=== PATIENT | male | born 1985 | race Caucasian/White ===

== ENCOUNTER 2021-06-26 10:16 | Emergency (ER) | payer BC, SELFPAY ==
--- NOTE | 2021-06-26 10:27 | ED.ANXIETY ---
HPI - Anxiety General Chief Complaint: Anxiety Stated Complaint: Anxiety/Chest Tightness Time Seen by Provider: 06/26/21 10:27 Source: patient and RN notes reviewed History of Present Illness HPI narrative: Patient is a 35-year-old male who presents the urgent care with complaints of anxiety. Reports of increased anxiety over the last 2 weeks to 1 month. 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 Patient denies of chest pain. States that symptoms are nearly fully resolved at this time. States that he notices an increase in symptoms at night. Patient states that he had a prescription for Xanax and it took years for him to finish it. Patient states he is not on any daily medications for anxiety or depression. Denies of any recent changes in life causing increase stress or anxiety. Denies of any shortness of breath. No other acute complaints. No acute distress noted. Patient aware of the plan of care. Some parts of this dictation were generated by voice recognition software and may contain typographical and/or grammatical inaccuracies. Related Data Allergies Allergy/AdvReac Type Severity Reaction Status Date / Time No Known Allergies Allergy Verified 06/26/21 10:43 Review of Systems Review of Systems: CONSTITUTIONAL: Denies fever, chills, or sweats. EYES: Denies visual changes, redness, or discharge. ENT: Denies rhinorrhea, congestion, sore throat, or otalgia. CARDIOVASCULAR: Denies chest pain, palpitations, or edema. RESPIRATORY: Denies cough or dyspnea. GASTROINTESTINAL: Denies abdominal pain, nausea, vomiting, or diarrhea. GENITOURINARY: Denies dysuria or hematuria. SKIN: Denies rash or itching. MUSCULOSKELETAL: Denies back pain, joint pain, or myalgia. NEUROLOGIC: Denies headache, numbness, or weakness. PSYCHIATRIC: Reports of anxiety All other systems reviewed are negative, except as documented in HPI. PMFSH Social History Social History Substance use type: marijuana Comments At the time of my signature, I reviewed and agree with the nursing past medical, surgical, social, and family history. There is no relevant family history pertinent to the patient complaint. Exam Narrative: GENERAL: This is a well-nourished, well-developed patient, in no apparent distress. HEAD: normocephalic, atraumatic. EYES: PERRL. Sclera clear/white. Vision is grossly intact. EARS: External ears normal NOSE: External nose normal with no obvious nasal discharge, nares without redness, no rhinorrhea. THROAT: Mucous membranes moist NECK: Neck supple CARDIOVASCULAR: Regular rate and rhythm without murmurs, gallops, or rubs. RESPIRATORY: Clear to auscultation. Breath sounds equal bilaterally. No wheezes, rales, or rhonchi. SKIN: warm, intact with no suspicious lesions or rash, good texture and turgor. NEURO: awake, alert, and oriented to person, place and time. There were no obvious focal neurologic abnormalities. EXTREMITIES: No clubbing, cyanosis, or edema. Course Vital Signs Vital signs: Vital Signs Temperature 97.9 F 06/26/21 10:28 Pulse Rate 77 06/26/21 10:28 Respiratory Rate 20 06/26/21 10:28 Blood Pressure 144/104 H 06/26/21 10:28 Pulse Oximetry 100 06/26/21 10:28 Temperature 97.9 F 06/26/21 10:28 Pulse Rate 77 06/26/21 10:28 Respiratory Rate 20 06/26/21 10:28 Blood Pressure 144/104 H 06/26/21 10:28 Pulse Oximetry 100 06/26/21 10:28 Reviewed-patient is informed that they may have pre-hypertension or hypertension based on a blood pressure reading in the department. I recommend the patient call the primary care provider listed on their discharge instructions or a physician of their choice this week to arrange follow-up for further evaluation of possible pre-hypertension or hypertension. MDM - Anxiety MDM Narrative Medical decision making narrative: Advised the patient to use the Atarax as needed
[2021-06-26 10:28] VITALS: BP 144/104; PULSE 77; RESP 20; TEMP 36.6; O2SAT 100
== END 2021-06-26 10:52 | disposition home or self-care (01) ==
PROVIDERS: Emergency Provider Nurse Practitioner Family
DX: F41.9 Anxiety disorder, unspecified (principal)
CPT/HCPCS: 99213; G0463